=== PATIENT | female | born 2000 | race Caucasian/White ===

== ENCOUNTER 2022-05-09 19:42 | Emergency (ER) | payer BC, SELFPAY ==
[2022-05-09 19:54] VITALS: BP 147/79; PULSE 68; RESP 20; TEMP 36.5; O2SAT 99; BMI 36.5
[2022-05-09 20:07] LABS: Microscopic, Urine URINE MICROSCOPIC (MICROSCOPIC)
[2022-05-09 20:09] LABS: Basophils # 0.2 K/mm3 (0-0.2); Basophils % 1.4 % (0.1-2.0); Eosinophils # 0.3 K/mm3 (0.0-0.4); Eosinophils % 2.6 % (0.1-12.0); Hematocrit 42.1 % (37.0-47.0); Hemoglobin 13.6 g/dL (12.2-16.2); Lymphocytes # 2.7 K/mm3 (0.7-4.5); Lymphocytes % 24.4 % (10-50); Mean Corpuscular HGB Conc 32.3 g/dL (31.8-35.4); Mean Corpuscular Hemoglobin 27.8 pg (27.0-31.2); Mean Corpuscular Volume 85.9 fl (81-99); Mean Platelet Volume 7.8 fl (7.4-10.4); Monocytes # 0.5 K/mm3 (0.1-1.0); Neutrophils # 7.3 K/mm3 (1.8-7.8); Neutrophils % 66.6 % (37.0-80.0); Platelet Count 541 K/mm3 (142-424); Red Cell Distribution Width 13.8 % (11.5-17.5)
[2022-05-09 20:11] LABS: Appearance,Urine CLEAR (Clear); Blood, Urine Negative (Negative); Chloride 104 mmol/L (98-107); Color,Urine YELLOW (Yellow); Glucose,Urine (UA) Negative (Negative); Ketones,Urine Negative (Negative); Leukocyte Esterase,Urine Negative (Negative); Nitrate,Urine Negative (Negative); PH,Urine 7.5 (5.0-8.5); Potassium 3.7 mmoL/L (3.5-5.1); Protein,Urine Negative (Negative); Sodium 139 mmol/L (136-145); Specific Gravity, Urine 1.015 (1.005-1.030); Urobilinogen,Urine 0.2 EU/dl (0.2)
[2022-05-09 20:13] LABS: Alanine Aminotransferase 23 U/L (12-78); Aspartate Amino Transferase 27 U/L (14-36); Blood Urea Nitrogen 6 mg/dl (7-17); Creatinine Clearance Estimated 255 mL/min (50-200); Estimated Glomerular Filt Rate 126 ml/min (>60); GFR (African American) 153 ML/MIN (>60)
[2022-05-09 20:14] LABS: Albumin Level 4.4 g/dl (3.5-5.0); Albumin/Globulin Ratio 1.3 (1.1-1.8); Alkaline Phosphatase 74 U/L (38-126); Anion Gap 8.7 mEq/L (5-15); Bilirubin,Total 0.4 mg/dl (0.2-1.3); Calcium 8.7 mg/dl (8.4-10.2); Carbon Dioxide 30 mmol/L (22.0-30.0); Globulin 3.3 g/dL (1.3-3.2); Glucose 114 mg/dl (74-100); Total Protein,Serum 7.7 g/dl (6.3-8.2)
[2022-05-09 20:16] LABS: Urine Pregnancy, HCG Qual. Negative (Negative)
[2022-05-09 20:34] LABS: Bilirubin,Urine 1+ (Negative)
[2022-05-09 20:41] LABS: Bacteria,Urine Trace /lpf
--- NOTE | 2022-05-09 20:47 | HMH.EDNVD ---
Discharge Plan Disposition Chief Complaint: Nausea/Vomiting/Diarrhea Prescriptions Prescriptions: No Action No Known Home Medications Referrals Follow up/Referrals: Brandi Douglas [Primary Care Provider] - See instructions Clinical Impressions Clinical Impression: Gastroenteritis Instructions Patient Instructions: DI for Diarrhea and Traveler's Diarrhea -- Adult, DI for Nausea -- Adult Discharge ED Provider: Franky (ED)[place] Nausea/Vomiting/Diarrhea HPI General Chief complaint: Nausea/Vomiting/Diarrhea Stated complaint: vomiting,diarrhea, abd pain Time Seen by Provider: 05/09/22 20:05 Mode of Arrival: Ambulatory Source of Information: Patient and Medical Record Limitations: No Limitations Description of Symptoms (Recalled from ER Triage Doc. by RN): Pt states she has been having episodes of N/V/D over the past couple months with increased weakness and fatigue. 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 Pt states her abdominal pain is worse at night when she lays down. No other sysmptoms or complaints at this time. History of Present Illness HPI Narrative: pt with upper abd pain brien at night and has sl fever with vomiting and diarrhea - has sense of weakness and tired - MD complaint: nausea, vomiting, diarrhea and abdominal pain Onset (ago): day(s) Associated Abdominal Pain: Yes Location of pain: epigastric Severity: moderate Quality: aching Consistency: intermittent Associated symptoms: malaise Related Data Home Medications Medication Instructions Recorded Confirmed No Known Home Medications 07/05/17 07/05/17 Allergies Allergy/AdvReac Type Severity Reaction Status Date / Time No Known Allergies Allergy Verified 07/05/17 00:24 [facility] Disclaimer: The information contained in this section may have been updated after the patient was seen, as this information can be updated by other users. Social History Smoking Status: Light tobacco smoker alcohol intake: never current occupational status: employed Travel in the last 8 weeks: None ROS Obtained: Yes All systems reviewed & no additional complaints except as documented Physical Exam General General appearance: alert Head Head exam: normocephalic Eye Eye exam: Present PERRL and EOMI ENT ENT exam: Present mucous membranes moist Neck Neck exam: Present trachea midline Respiratory Respiratory exam: Present normal lung sounds bilaterally; Absent respiratory distress Cardiovascular Cardiovascular exam: Present regular rate Abdominal Exam Abdominal exam: Present soft and tenderness; Absent guarding or rebound Abdominal tenderness: Present epigastrium and mild Extremities Exam Extremities exam: Present full ROM Neurological Exam Neurological exam: Present alert, oriented X3 and CN II-XII intact; Absent motor sensory deficit Psychiatric Psychiatric exam: Present normal affect Skin Skin exam: Absent rash Medical Decision Making Medical Records Medical records reviewed: Yes I reviewed the patient's medical records. Joce Inquiry Pt receiving controlled substance: No Vital Signs: 05/09/22 19:54 05/09/22 22:05 Temperature 97.7 F Temperature Source Oral Pulse Rate 77 Pulse Rate [Right] 68 Respiratory Rate 20 20 Blood Pressure 114/59 L Blood Pressure [Right Arm] 147/79 H Blood Pressure Mean [Right Arm] 101 Blood Pressure Source Automatic Cuff Blood Pressure Source [Right Arm] Automatic Cuff Blood Pressure Position Sitting Blood Pressure Position [Right Arm] Sitting 02 Sat by Pulse Oximetry 99 100 Oxygen Delivery Method Room Air Room Air Lab Data Lab results reviewed: Yes I reviewed the patient's lab results. Lab Results 05/09/22 19:50: Urine Color Yellow, Urine Appearance Clear, Urine pH 7.5, Ur Specific [place] 1.015, Urine Protein Negative, Urine Glucose (UA) Negative, Urine Ketones Negative, Urine Blood Negative, Urine Nitrate Negative, Ur
[2022-05-09 21:09] LABS: C-Reactive Protein 10.4 mg/L (0-4)
[2022-05-09 21:23] LABS: T4 (Thyroxine) 9.6 ug/dl (5.53-11.0)
[2022-05-09 21:36] LABS: Thyroid Stimulating Hormone 1.09 uIU/mL (0.465-4.68)
[2022-05-09 22:05] VITALS: BP 114/59; PULSE 77; RESP 20; O2SAT 100
[2022-05-09 22:35] VITALS: BP 124/78; PULSE 71; RESP 20; TEMP 36.5; O2SAT 100
== END 2022-05-09 22:41 | disposition home or self-care (01) ==
PROVIDERS: Emergency Provider Emergency Medicine; PCP Family Medicine
DX: K52.9 Noninfective gastroenteritis and colitis, unspecified (principal); R11.2 Nausea with vomiting, unspecified; R10.10 Upper abdominal pain, unspecified; R53.83 Other fatigue
CPT/HCPCS: 80053; 81001; 81025; 84436; 84443; 85025; 86140; 96361; 96374; 99284; 99285; J2405

== ENCOUNTER 2023-06-29 15:48 | Emergency (ER) | payer BC, SELFPAY ==
--- NOTE | 2023-06-29 16:03 | EXP.UTC ---
Discharge Plan Disposition Patient Disposition: Home, Self-Care Condition: Good Prescriptions Prescriptions: New ibuprofen 600 mg tablet 600 mg PO Q6HP PRN (Reason: Mild Pain) Qty: 30 0RF Referrals Follow up/Referrals: Thomas Bunn [Primary Care Provider] - See instructions Roopa Gamble MD [Staff Physician] - See instructions Activity Restrictions/Add. Instructions Additional Instructions/Restrictions: Take the medications as directed for your headaches. Follow up with your regular doctor. I put in a referral to the neurologist (Dr. Gamble). Please call her office and get an appointment to be seen there. GO TO THE ER FOR ANY WORSENING SYMPTOMS Clinical Impressions Clinical Impression: Cluster headache Discharge ED Provider: Tenzin Kramer [facility] General Stated complaint: persistent WILEY Time Seen by Provider: 06/29/23 16:03 History of Present Illness Provider Complaint: She states that she has been having daily headache for the past 2 weeks. The headaches have been relieved with excedrin. Related Data Previous Rx's Medication Instructions Recorded ibuprofen 600 mg tablet 600 mg PO Q6HP PRN Mild Pain #30 06/29/23 tabs Allergies Allergy/AdvReac Type Severity Reaction Status Date / Time No Known Allergies Allergy Verified 06/29/23 16:47 [facility] Disclaimer: The information contained in this section may have been updated after the patient was seen, as this information can be updated by other users. Social History Smoking Status: Light tobacco smoker alcohol intake: never current occupational status: employed Travel in the last 8 weeks: None ROS Obtained: Yes All systems reviewed & no additional complaints except as documented Constitutional Constitutional: Denies chills, Denies fever(s), Reports headache(s) and Denies weakness Eyes Eyes: Denies eye discharge ENT Ears, Nose, Mouth, and Throat: Denies dizziness, Denies otalgia, Reports headache(s) and Denies sore throat Cardiovascular Cardiovascular: Denies chest pain Respiratory Respiratory: Denies shortness of breath, Denies chest congestion, Denies cough, Denies stridor and Denies wheezing Gastrointestinal Gastrointestingal: Denies nausea or vomiting Musculoskeletal Musculoskeletal: Reports system reviewed and no additional complaints, except as documented, Denies abnormal gait and Denies arthralgias Integumentary/Breasts Skin/Breast: Denies rash Neurologic Neurologic: Reports as per HPI, Denies abnormal gait, Denies abnormal speech, Denies confusion, Denies dizziness, Reports headache(s), Denies paresthesias, Denies radicular pain, Denies seizure-like activity, Denies sensory deficit, Denies tremor(s) and Denies weakness Allergic/Immunologic Allergic/Immunologic: Denies wheezing Physical Exam General General appearance: alert and in no apparent distress Head Head exam: atraumatic, normocephalic and normal inspection Eye Eye exam: Present normal appearance, PERRL and EOMI Expanded Eye Exam Pupils: Left: size (2), Right: size (2) and Bilateral: regular, round and reactive ENT ENT exam: Present normal exam, normal oropharynx, mucous membranes moist, TM's normal bilaterally and normal external ear exam Neck Neck exam: Present normal inspection, full ROM and trachea midline; Absent meningismus or lymphadenopathy Chest Chest inspection: Present normal inspection and symmetric chest wall rise; Absent tenderness Respiratory Respiratory exam: Present normal lung sounds bilaterally; Absent respiratory distress Cardiovascular Cardiovascular exam: Present regular rate and normal rhythm; Absent JVD Abdominal Exam Abdominal exam: Present soft and normal bowel sounds; Absent distention, tenderness or guarding Extremities Exam Extremities exam: Present normal inspection, full ROM and normal capillary refill; Absent calf tenderness Back Exam Back exam: Present normal inspection; Absent tenderness Neurological Exam Neurological exam: Present alert, oriented X3, CN II-XII intact, normal gait and reflexes normal; Absent motor sensory deficit Expanded Neurological Exam Speech: Present fluid speech Cranial nerves: Normal: EOM function (II, III, IV, ), facial sensation (V), facial palsy (VII), gag reflex (IX), spinal accessory function (XI) and tongue deviation (XII) Cerebellar function: normal gait Motor strength - LUE: 5/5 Motor strength - RUE: 5/5 Motor strength - LLE: 5/5 Motor strength - RLE: 5/5 Sensory exam upper extremity: Normal: light touch and 2 point discrimination Sensory exam lower extremity: Normal: light touch and 2 point discrimination DTR: 2+: biceps (L), biceps (R), patellar (L), patellar (R), Achilles tendon (L) and Achilles tendon (R) Psychiatric Psychiatric exam: Present normal affect and normal mood Skin Skin exam: Present warm, dry, intact and normal color Lymphatic Lymphatic Findings: no adenopathy Medical Decision Making Medical Records Medical records reviewed: No I reviewed the patient's medical records. Joce Inquiry Pt receiving controlled substance: No
[2023-06-29 16:10] VITALS: BP 134/41; PULSE 91; RESP 18; TEMP 36.9; O2SAT 96; BMI 38.7
[2023-06-29 17:03] VITALS: BP 134/41; PULSE 91; RESP 18; TEMP 36.9; O2SAT 96
== END 2023-06-29 17:03 | disposition home or self-care (01) ==
PROVIDERS: Emergency Provider Nurse Practitioner Family; PCP Pediatrics
DX: G44.009 Cluster headache syndrome, unspecified, not intractable (principal)
CPT/HCPCS: 99204; 99212; G0463

== ENCOUNTER 2023-08-03 17:08 | Emergency (ER) | payer BC, SELFPAY ==
[2023-08-03] VITALS (7 sets, daily range): BP systolic 109–136; BP diastolic 57–83; PULSE 94–114; RESP 13–16; TEMP 36.7–36.8; O2SAT 95–98; BMI 42.0
--- NOTE | 2023-08-03 17:49 | HMH.EDGENADL ---
Discharge Plan Disposition Patient Disposition: Home, Self-Care Condition: Good Prescriptions Prescriptions: New ondansetron 4 mg tablet,disintegrating 4 mg PO Q6H PRN (Reason: nausea and vomiting) 4 Days Qty: 16 0RF famotidine [Pepcid AC] 20 mg tablet 20 mg PO BID 14 Days Qty: 28 0RF No Action ibuprofen 600 mg tablet 600 mg PO Q6HP PRN (Reason: Mild Pain) Qty: 30 0RF Referrals Follow up/Referrals: Thomas Bunn [Primary Care Provider] - See instructions Activity Restrictions/Add. Instructions Additional Instructions/Restrictions: You have been evaluated in the ED for your complaints. You may follow-up with your PCP in the next 3 to 5 days. Please return to ED for any new or worsening symptoms. I have written prescriptions for Zofran to assist with your nausea. Pepcid should assist with your epigastric symptoms. Please drink plenty of fluids over the next several days. Clinical Impressions Clinical Impression: Nausea vomiting and diarrhea, Gastroenteritis Instructions Patient Instructions: DI for Acute Abdominal Pain Discharge ED Provider: Isaias Varghese General Adult HPI General Chief complaint: Abdominal Pain Stated complaint: abd pain, vomiting Time Seen by Provider: 08/03/23 17:14 Mode of Arrival: Ambulatory Source of Information: Patient Limitations: No Limitations Description of Symptoms (Recalled from ER Triage Doc. by RN): pt presents to ED with c/o vomitting, diarrhea, abd pain. symptoms ongoing since saturday. History of Present Illness HPI narrative: 22-year-old female with past medical history sniffing for ulcerative colitis presents today for evaluation concerning nausea vomiting and diarrhea persistent over the past 4 days. She has also had epigastric abdominal pain. Reports fever with Tmax of 101.2 on yesterday. Has been afebrile today. Decreased p.o. intake. Denies having any chest pain, shortness of breath, dysuria, hematuria or any other associated symptoms at this time. She does report that no one else in the home has her symptoms. Related Data Previous Rx's Medication Instructions Recorded ibuprofen 600 mg tablet 600 mg PO Q6HP PRN Mild Pain #30 06/29/23 tabs famotidine 20 mg tablet (Pepcid AC) 20 mg PO BID 2 weeks #28 tabs 08/03/23 ondansetron 4 mg disintegrating 4 mg PO Q6H PRN nausea and 06/22/24 tablet vomiting 4 days #16 tabs Allergies Allergy/AdvReac Type Severity Reaction Status Date / Time No Known Allergies Allergy Verified 06/29/23 16:47 [facility] Disclaimer: The information contained in this section may have been updated after the patient was seen, as this information can be updated by other users. Social History Smoking Status: Never smoker alcohol intake: never current occupational status: employed Travel in the last 8 weeks: None ROS Obtained: Yes All systems reviewed & no additional complaints except as documented Physical Exam General General appearance: alert and in no apparent distress Head Head exam: atraumatic and normocephalic Eye Eye exam: Present normal appearance, PERRL and EOMI ENT ENT exam: Present normal oropharynx and mucous membranes moist Neck Neck exam: Present full ROM; Absent meningismus Respiratory Respiratory exam: Absent respiratory distress, wheezes, stridor or accessory muscle use Cardiovascular Cardiovascular exam: Present normal rhythm and tachycardia Abdominal Exam Abdominal exam: Present soft and tenderness; Absent distention, guarding, rebound or rigidity Abdominal tenderness: Present RUQ, LUQ and epigastrium Neurological Exam Neurological exam: Present alert, oriented X3 and CN II-XII intact; Absent motor sensory deficit Psychiatric Psychiatric exam: Present normal affect and normal mood Skin Skin exam: Present warm and dry Medical Decision Making Medical Records Medical records reviewed: Yes I reviewed the patient's medical records. Joce Inquiry Pt receiving controlled substance: No Joce was queried for this patient: No Vital Signs: 08/03/23 17:10 08/03/23 18:00 08/03/23 18:12 Temperature 98.1 F Temperature Source Oral Pulse Rate 108 H 110 H Pulse Rate [Left Radial] 114 H Respiratory Rate 13 Blood Pressure 128/80 130/83 Blood Pressure [Right Arm] 136/74 Blood Pressure Mean [Right Arm] 94 02 Sat by Pulse Oximetry 98 97 97 Oxygen Delivery Method Room Air 08/03/23 18:30 08/03/23 18:59 08/03/23 19:00 Temperature Temperature Source Pulse Rate 108 H 94 H 94 H Pulse Rate [Left Radial] Respiratory Rate Blood Pressure 111/83 117/57 L 109/67 L Blood Pressure [Right Arm] Blood Pressure Mean [Right Arm] 02 Sat by Pulse Oximetry 97 96 95 Oxygen Delivery Method Lab Data Lab Results 08/03/23 17:25: Urine Color Dark yellow, Urine Appearance Slightly cloudy, Urine pH 6.0, Ur Specific [place] 1.025, Urine Protein Negative, Urine Glucose (UA) Negative, Urine Ketones 1+, Urine Blood Trace-l, Urine Nitrate Negative, Urine Bilirubin 1+ A, Urine Urobilinogen 2.0, Ur Leukocyte Esterase Trace, Urine RBC 3-5, Urine WBC 3-5, Ur Squamous Epith Cells Occasional, Urine Bacteria 1+ 08/03/23 17:38: WBC 7.5, RBC 4.75, Hgb 13.5, Hct 41.3, MCV 87.1, MCH 28.4, MCHC 32.6, RDW 14.3, Plt Count 492 H, MPV 8.4, Neut % (Auto) 64.4, Lymph % (Auto) 20.0, [place] % (Auto) 7.6, Eos % (Auto) 6.6, Baso % (Auto) 1.4, Neut # (Auto) 4.8, Lymph # (Auto) 1.5, [place] # (Auto) 0.6, Eos # (Auto) 0.5 H, Baso # (Auto) 0.1, Sodium 137, Potassium 3.2 L, Chloride 103, Carbon Dioxide 26, Anion Gap 11.2, BUN 7, Creatinine 0.70, Estimated Creat Clear 123, Estimated GFR 105, Est GFR ( Amer) 127, Glucose 101 H, Lactate 0.8, Calcium 9.5, Total Bilirubin 0.5, AST 34, ALT 31, Alkaline Phosphatase 64, Total Protein 8.0, Albumin 4.5, Globulin 3.5 H, Albumin/Globulin Ratio 1.3, Lipase 26, Serum HCG, Qual Negative 08/03/23 17:38 08/03/23 17:38 Orders (Tests/Meds): ED MEDICATIONS Discontinued Medications Generic Name Dose Route Start Last Admin Trade Name Freq PRN Reason Stop Dose Admin Belladonna Alkaloids 60 ml 08/03/23 17:49 08/03/23 18:09 Belladonna Alkaloids 60 Ml Ml PO 08/03/23 17:50 60 ml ONCE ONE Administration Lactated Ringer's 500 mls @ 999 mls/hr 08/03/23 17:49 08/03/23 18:15 Lactated Ringer's 1000 Ml Bag IV 08/03/23 18:19 999 mls/hr .Q31M ONE Administration Iopamidol 75 ml 08/03/23 19:58 08/03/23 19:59 Iopamidol-370 (76%);100ml Bottle IV 08/03/23 19:59 75 ml ONCE ONE Administration Morphine Sulfate 4 mg 08/03/23 17:49 08/03/23 18:15 Morphine 4mg/Ml Syringe IV 08/03/23 17:50 4 mg ONCE ONE Administration Ondansetron HCl 4 mg 08/03/23 17:49 08/03/23 18:15 Ondansetron 4mg/2ml Vial IV 08/03/23 17:50 4 mg ONCE ONE Administration Sodium Chloride 10 ml 08/03/23 19:58 08/03/23 19:59 Sodium Chloride 0.9% 10ml Syr (Rad Only) IV 08/03/23 19:59 10 ml ONCE ONE Administration ORDERS Category Date Time Status CT abdomen pelvis w con Stat Cat Scan 08/03/23 17:51 Completed CBC w/Auto Diff [Complete Blood Count Auto Diff] Stat Lab 08/03/23 17:38 Completed CMP [Comprehensive Metabolic Panel] Stat Lab 08/03/23 17:38 Completed Lactic Acid Stat Lab 08/03/23 17:38 Completed Lipase Stat Lab 08/03/23 17:38 Completed Serum [HCG Qualitative, Serum] Stat Lab 08/03/23 17:38 Completed UA [Urinalysis and Microscopic] Stat Lab 08/03/23 17:25 Completed Medical Decision Narrative: 22-year-old female with past medical history sniffing for ulcerative colitis presents today for evaluation concerning nausea vomiting and diarrhea persistent over the past 4 days. She has also had epigastric abdominal pain. Reports fever with Tmax of 101.2 on yesterday. Has been afebrile today. Decreased p.o. intake. Denies having any chest pain, shortness of breath, dysuria, hematuria or any other associated symptoms at this time. On assessment she is medically stable in no acute distress. Afebrile. Tachycardic. Chest otherwise clear to auscultation bilaterally. Abdomen was soft and nondistended however was tender in the upper quadrants. Focally tender in the epigastrium. Differential diagnoses include but limited to gastritis, gastroenteritis, cholecystitis, cholelithiasis, pancreatitis, ulcerative colitis flare, among others. No elevation in WBC at 7.5. Platelets elevated at 492, likely reactive. Potassium 3.2. No signs of UTI on urinalysis. CT abdomen pelvis with no acute findings. On reassessment the patient remains medically stable and in no acute distress. Afebrile. Pain is much improved after GI cocktail. I discussed ED workup and results and current plan to discharge home with supportive care measures in the Setting of her gastroenteritis. Will prescribe Zofran and Pepcid. She verbalized understanding and agreement with plan. Provided with return precautions. Subsequently discharged hemodynamically stable and in no acute distress Critical Care Critical Care Time Critical Care Time: No
--- NOTE | 2023-08-03 17:51 | CT_ITS ---
PROCEDURE INFORMATION: Exam: CT Abdomen And Pelvis With Contrast Exam date and time: 08/03/2023 7:45 PM Age: 22 years old Clinical indication: Abdominal pain; Additional info: Upper abd pain/ n/v TECHNIQUE: Imaging protocol: Computed tomography of the abdomen and pelvis with contrast. Radiation optimization: All CT scans at this facility use at least one of these dose optimization techniques: automated exposure control; mA and/or kV adjustment per patient size (includes targeted exams where dose is matched to clinical indication); or iterative reconstruction. Contrast material: ISOVUE; Contrast volume: 75 ml; Contrast route: IV; COMPARISON: No relevant prior studies available. FINDINGS: Liver: Normal. No mass. Gallbladder and biliary ducts: Normal. No calcified stones. No ductal dilation. Pancreas: Normal. No ductal dilation. Spleen: Normal. No splenomegaly. Adrenal glands: Normal. No mass. Kidneys and ureters: Normal. No hydronephrosis. Stomach and bowel: Unremarkable. No obstruction. No mucosal thickening. Appendix: No evidence of appendicitis. Intraperitoneal space: Unremarkable. No free air. No significant fluid collection. Vasculature: Unremarkable. No abdominal aortic aneurysm. Lymph nodes: Unremarkable. No enlarged lymph nodes. Urinary bladder: Unremarkable as visualized. Reproductive: 2.2 cm right ovarian follicle versus cyst. Bones/joints: Unremarkable. No acute fracture. Soft tissues: Small to moderate size midline upper ventral abdominal wall fat containing hernia superior to the umbilicus. IMPRESSION: No acute findings.
[2023-08-03 17:55] LABS: Microscopic, Urine URINE MICROSCOPIC (MICROSCOPIC)
[2023-08-03 17:58] LABS: Basophils # 0.1 K/mm3 (0-0.2); Basophils % 1.4 % (0.1-2.0); Eosinophils # 0.5 K/mm3 (0.0-0.4); Eosinophils % 6.6 % (0.1-12.0); Hematocrit 41.3 % (37.0-47.0); Hemoglobin 13.5 g/dL (12.2-16.2); Lymphocytes # 1.5 K/mm3 (0.7-4.5); Mean Corpuscular HGB Conc 32.6 g/dL (31.8-35.4); Mean Corpuscular Hemoglobin 28.4 pg (27.0-31.2); Mean Corpuscular Volume 87.1 fl (81-99); Mean Platelet Volume 8.4 fl (7.4-10.4); Monocytes # 0.6 K/mm3 (0.1-1.0); Monocytes % 7.6 % (1.7-9.3); Neutrophils # 4.8 K/mm3 (1.8-7.8); Neutrophils % 64.4 % (37.0-80.0); Platelet Count 492 K/mm3 (142-424); Red Blood Count 4.75 M/mm3 (4.20-5.40); Red Cell Distribution Width 14.3 % (11.5-17.5); White Blood Count 7.5 K/mm3 (4.8-10.8)
[2023-08-03 17:58] LABS: Blood, Urine TRACE-L (Negative); Glucose,Urine (UA) Negative (Negative); Ketones,Urine 1+ (Negative); Leukocyte Esterase,Urine TRACE (Negative); Nitrate,Urine Negative (Negative); Protein,Urine Negative (Negative); Specific Gravity, Urine 1.025 (1.005-1.030)
[2023-08-03 17:59] LABS: Chloride 103 mmol/L (98-107); Potassium 3.2 mmoL/L (3.5-5.1); Sodium 137 mmol/L (136-145)
[2023-08-03 18:00] LABS: Appearance,Urine Slightly Cloudy (Clear); Bilirubin,Urine 1+ (Negative); Color,Urine Dark Yellow (Yellow)
[2023-08-03 18:01] LABS: Blood Urea Nitrogen 7 mg/dl (7-17); Creatinine Clearance Estimated 123 mL/min (50-200); Estimated Glomerular Filt Rate 105 ml/min (>60); GFR (African American) 127 ML/MIN (>60); Lactic Acid 0.8 mmol/L (0.7-2.1)
[2023-08-03 18:02] LABS: Alanine Aminotransferase 31 U/L (12-78); Albumin Level 4.5 g/dl (3.5-5.0); Albumin/Globulin Ratio 1.3 (1.1-1.8); Alkaline Phosphatase 64 U/L (38-126); Anion Gap 11.2 mEq/L (5-15); Aspartate Amino Transferase 34 U/L (14-36); Bilirubin,Total 0.5 mg/dl (0.2-1.3); Calcium 9.5 mg/dl (8.4-10.2); Carbon Dioxide 26 mmol/L (22.0-30.0); Globulin 3.5 g/dL (1.3-3.2); Glucose 101 mg/dl (74-100); Lipase 26 U/L (23-300)
[2023-08-03 18:09] LABS: Bacteria,Urine 1+ /lpf; Squamous Epithelial Cell,Urine Occasional #/hpf (0-5)
[2023-08-03] MEDS: BELLADONNA ALKALOIDS 60 ML ML PO (18:09)
[2023-08-03 18:10] LABS: HCG Qualitative, Serum Negative (Negative)
[2023-08-03] MEDS: ONDANSETRON 4MG/2ML VIAL 4 MG IV (18:15)
[2023-08-03] MEDS: LACTATED RINGERS 1000ML 500 ML 999 ML IV (18:15)
[2023-08-03] MEDS: MORPHINE 4MG/ML SYRINGE 4 MG IV (18:15)
[2023-08-03] MEDS: IOPAMIDOL-370 (76%);100ML BOTTLE 75 ML IV (19:59)
[2023-08-03] MEDS: SODIUM CHLORIDE 0.9% 10ML SYR (RAD ONLY) 10 ML IV (19:59)
== END 2023-08-03 23:08 | disposition home or self-care (01) ==
PROVIDERS: Emergency Provider Emergency Medicine; PCP Pediatrics
DX: R10.13 Epigastric pain (principal); K52.9 Noninfective gastroenteritis and colitis, unspecified; R11.2 Nausea with vomiting, unspecified; E87.6 Hypokalemia
CPT/HCPCS: 74177; 80053; 81001; 83605; 83690; 84703; 85025; 96374; 96375; 99285; J2270; J2405; J7120; Q9967

== ENCOUNTER 2024-01-13 23:31 | Emergency (ER) | payer BC, SELFPAY ==
[2024-01-13 23:33] VITALS: BP 130/85; PULSE 100; RESP 20; TEMP 36.9; O2SAT 97; BMI 40.4
--- NOTE | 2024-01-14 00:22 | ED_ITS ---
Discharge Plan Disposition Patient Disposition: Home, Self-Care Condition: Good Prescriptions Prescriptions: No Action ondansetron 4 mg tablet,disintegrating 4 mg PO Q6H PRN (Reason: nausea and vomiting) 4 Days Qty: 16 0RF Referrals Follow up/Referrals: Thomas Bunn [Primary Care Provider] - See instructions Activity Restrictions/Add. Instructions Additional Instructions/Restrictions: You were evaluated in the ER and are appropriate for discharge at this time. Take Tylenol or ibuprofen if needed for mild Aches and pains. Drink a glass of water and eat a small snack each time you take these medications to avoid side effects. Follow-up with your primary care doctor for reevaluation in a few days. Return to the ER with new, worsening, or otherwise concerning symptoms. Clinical Impressions Clinical Impression: Acute sore throat Print Language Print Language: Sinhala Discharge ED Provider: Chika Enriquez Adult HPI General Chief complaint: Upper Respiratory Infection Stated complaint: tongue, throat swelling, redness Time Seen by Provider: 01/14/24 00:08 Mode of Arrival: Ambulatory Source of Information: Patient Limitations: No Limitations Description of Symptoms (Recalled from ER Triage Doc. by RN): Pt to ED with c/o sore throat X2 days, and report she feels like her tongue has been swollen as well History of Present Illness HPI narrative: 23-year-old female presents to the ER with complaints of sore throat for the past few days. She reports she feels like the sides of her tongue have been swollen since her throat started hurting, she has a crack in her lip as well. Patient states her daughter was treated for strep a few weeks ago so she really is hoping to be tested for strep to make sure she does not have that. She states she has had mild congestion but no fevers, no nausea vomiting or diarrhea, no chest pain or shortness of breath, no cough, headache, dizziness, numbness, tingling, weakness, dysuria, or hematuria. Patient reports she does not believe she is but is unsure. Related Data Previous Rx's ?Medication ?Instructions ?Recorded ondansetron 4 mg disintegrating 4 mg PO Q6H PRN nausea and 08/03/23 tablet vomiting 4 days #16 tabs Allergies Allergy/AdvReac Type Severity Reaction Status Date / Time No Known Allergies Allergy Verified 08/27/23 14:42 [facility] Disclaimer: The information contained in this section may have been updated after the patient was seen, as this information can be updated by other users. Medical History (Updated 01/14/24 @ 01:17 by Chika Enriquez MD) No significant medical problems Surgical History (Updated 08/27/23 @ 14:45 by Edda Sosa MA) Hx of section Hx of adenoidectomy Social History Smoking Status: Current every day smoker alcohol intake: never current occupational status: employed Travel in the last 8 weeks: None ROS Obtained: Yes Systems reviewed as appropriate & no additional complaints except as documented ROS per HPI Physical Exam General General appearance: alert and in no apparent distress Head Head exam: atraumatic and normocephalic Eye Eye exam: Present PERRL and EOMI ENT ENT exam: Present mucous membranes moist and other (Tongue normal in appearance with no swelling, there is no finding of mucosal swelling aside from the tonsillomegaly; patient has a well-healing crack in her lower lip, she states occasionally when she smiles it cracks and bleeds. There are no vesicles or other associated skin or mucosal changes); Absent normal oropharynx (Tonsils are enlarged but airway is patent, there are no obvious exudates) Neck Neck exam: Present normal inspection and full ROM; Absent lymphadenopathy Chest Chest inspection: Present symmetric chest wall rise Respiratory Respiratory exam: Present normal lung sounds bilaterally; Absent respiratory distress, wheezes or stridor Cardiovascular Cardiovascular exam: Present regular rate and normal rhythm Extremities Exam Extremities exam: Present full ROM Neurological Exam Neurological exam: Present alert and oriented X3; Absent motor sensory deficit Psychiatric Psychiatric exam: Present normal affect and normal mood Skin Skin exam: Present warm and dry Medical Decision Making Medical Records Medical records reviewed: Yes I reviewed the patient's medical records. Screening: Per USPSTF and CDC recommendations, given the prevalence of disease in our region, it is our hospital?s policy to screen for HIV and viral Hepatitis for all patients aged 18 and over and those with ongoing risk factors. 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 Nexplanon was removed. Joce Inquiry Pt receiving controlled substance: No Vital Signs: 01/13/24 23:33 Temperature 98.5 F Temperature Source Oral Pulse Rate [Left Radial] 100 H Respiratory Rate 20 Blood Pressure [Right Arm] 130/85 Blood Pressure Mean [Right Arm] 100 Blood Pressure Source [Right Arm] Automatic Cuff Blood Pressure Position [Right Arm] Sitting 02 Sat by Pulse Oximetry 97 Oxygen Delivery Method Room Air Lab Data Lab Results 01/14/24 00:25: Urine HCG, Qual Negative, SARS-CoV-2 (PCR) Not detected, Influenza A Untype (PCR) Not detected, Influenza Type B (PCR) Not detected, Group A Strep Rapid Negative Orders (Tests/Meds): ORDERS Category Date Time Status Rapid PCR Covid and Flu A/B Stat Lab 01/14/24 00:25 Completed Strep Scrn Group A (Rapid) Stat Lab 01/14/24 00:25 Completed Urine , HCG Qual. Stat Lab 01/14/24 00:25 Completed Strep Screen Confirmation Stat Micro 01/14/24 00:25 Received Medical Decision Narrative: In summary, this 23-year-old female with no known chronic medical conditions, no daily medications, no known drug allergies presents to the emergency department today with sore throat, sensation that the edges of her tongue are swollen, and her lip is cracked. On initial evaluation patient is hemodynamically stable, afebrile, I do not appreciate lymphadenopathy however patient's tonsils are enlarged and mildly erythematous without exudate, cardiopulmonary exam benign, tongue is normal-appearing I do not appreciate any swelling, no findings of angioedema, no findings of intraoral lesions, lip appears to just be a simple superficial crack, there are no vesicles or other lesions appreciated though I did consider herpes simplex on my differential. In addition to the things mentioned, I considered the possibility of strep since patient was exposed to this from her daughter recently. Also consider the possibility of viral syndrome, with any sore throat ROS consider peritonsillar abscess or retroph aryngeal abscess however patient has no evidence of these since all posterior oropharyngeal structures are symmetric, there is no pain with range of motion of the neck, no voice changes, and no fever COVID test, strep swab, urine ordered. Review of labs demonstrates negative COVID and flu, no strep, test negative. On reassessment patient continues to be stable and is appropriate for discharge at this time. Patient was given instructions on symptomatic management, follow up instructions, and return precautions for the emergency department. Patient indicated understanding and was discharged in stable condition. Critical Care Critical Care Time Critical Care Time: No
[2024-01-14 00:32] LABS: Coronavirus 19, PCR Not Detected (NotDetected); Influenza A, PCR Not Detected (NotDetected); Influenza B, PCR Not Detected (NotDetected)
[2024-01-14 00:42] LABS: Urine Pregnancy, HCG Qual. Negative (Negative)
[2024-01-14 00:45] LABS: Strep Scrn Group A (Rapid) Negative (Negative)
[2024-01-14 01:26] VITALS: BP 130/89; PULSE 100; RESP 20; TEMP 36.9; O2SAT 97
== END 2024-01-14 01:27 | disposition home or self-care (01) ==
PROVIDERS: Emergency Provider Emergency Medicine; PCP Pediatrics
DX: J02.9 Acute pharyngitis, unspecified (principal); R09.81 Nasal congestion; Z72.0 Tobacco use
CPT/HCPCS: 81025; 87430; 87636; 99283

== ENCOUNTER 2024-03-08 16:48 | Emergency (ER) | payer BC, SELFPAY ==
[2024-03-08 17:06] VITALS: BP 133/57; PULSE 91; RESP 18; TEMP 36.7; O2SAT 97; BMI 41.3
--- NOTE | 2024-03-08 17:21 | EXP.UTC ---
Discharge Plan Disposition Patient Disposition: Home, Self-Care Condition: Good Prescriptions Prescriptions: New cefdinir 300 mg capsule 300 mg PO Q12H 10 Days Qty: 20 0RF fluticasone propionate [Flonase Allergy Relief] 50 mcg/actuation spray,suspension 1 spray intranasal DAILY Qty: 16 0RF Rx Instructions: administer into each nostril Referrals Follow up/Referrals: Provider,Referral, MD [Primary Care Provider] - See instructions Activity Restrictions/Add. Instructions Additional Instructions/Restrictions: Take medication as prescribed. Increase fluids and rest. If symptoms persist or worsen, return to clinic/PCP. Clinical Impressions Clinical Impression: Acute suppur left otitis media w/o spontan rupture tympanic membrane Instructions Patient Instructions: DI for Middle Ear Infection-Adult Print Language Print Language: Cuban Discharge ED Provider: Kirstin Bhakta [facility] HPI General Stated complaint: L side face swollen w/knot/ear pain Mode of Arrival: Ambulatory Source of Information: Patient Time Seen by Provider: 03/08/24 17:20 Description of Symptoms (Recalled from Triage Doc. by RN): LEFT SIDE OF JAW SWELLED, EAR PAIN, LUMP ON JAW HEENT Symptoms (Recalled from RN notes): Yes Resp Symptoms (Recalled from RN notes): No Skin Symptoms (Recalled from RN notes): Yes MS Symptoms (Recalled from RN notes): No Functional Status (Recalled from RN notes): WNL History of Present Illness Provider Complaint: Pt relates that her left ear started hurting yesterday with a pain 10/10. She reports that it is not as bad as it was, but she has taken Ibuprofen. Pt relates that she has a lump just under her jaw and what feels like left side facial swelling. Related Data Previous Rx's ?Medication ?Instructions ?Recorded cefdinir 300 mg capsule 300 mg PO Q12H 10 days #20 caps 03/08/24 fluticasone propionate 50 1 spray intranasal DAILY #16 grams 03/08/24 mcg/actuation nasal spray,suspension (Flonase Allergy Relief) Allergies Allergy/AdvReac Type Severity Reaction Status Date / Time No Known Allergies Allergy Verified 08/27/23 14:42 Worker's Comp Is this a Worker's Comp case?: No [facility] Disclaimer: The information contained in this section may have been updated after the patient was seen, as this information can be updated by other users. Medical History (Updated 03/08/24 @ 17:33 by Kirstin Bhakta APRN) No significant medical problems Surgical History (Updated 08/27/23 @ 14:45 by Edda Sosa MA) Hx of section Hx of adenoidectomy Social History Smoking Status: Current every day smoker alcohol intake: never current occupational status: employed Travel in the last 8 weeks: None Have you lived/traveled outside US in past 30 days?: No Contact w/someone who lives/traveled outside US past 30 days?: No Exposure to someone with infectious disease in past 14 days?: No Do you have a fever (greater than 100.4 F or 38 C)?: No Have you tested positive for COVID-19: No Exposed to someone with COVID-19 in past 14 days?: No Do you have a sore throat?: No Do you have a cough?: No Do you have any weakness?: No Do you have any diarrhea?: No Are you experiencing any unusual bleeding?: No Do you have any muscle aches/pain?: No Do you have any abdominal pain?: No Are you experiencing loss of taste or smell?: No ROS Obtained: Yes All systems reviewed & no additional complaints except as documented Constitutional Constitutional: Reports system reviewed and no additional complaints, except as documented Eyes Eyes: Reports system reviewed and no additional complaints, except as documented ENT Ears, Nose, Mouth, and Throat: Reports system reviewed and no additional complaints, except as documented, Reports otalgia, Reports facial pain and Reports sinus pressure Cardiovascular Cardiovascular: Reports system reviewed and no additional complaints, except as documented Respiratory Respiratory: Reports system reviewed and no additional complaints, except as documented Gastrointestinal Gastrointestingal: Reports system reviewed and no additional complaints, except as documented Genitourinary Female Genitourinary: Reports system reviewed and no additional complaints, except as documented Musculoskeletal Musculoskeletal: Reports system reviewed and no additional complaints, except as documented Integumentary/Breasts Skin/Breast: Reports system reviewed and no additional complaints, except as documented Neurologic Neurologic: Reports system reviewed and no additional complaints, except as documented Endocrine Endocrine: Reports system reviewed and no additional complaints, except as documented Hematologic/Lymphatic Henatologic/Lymphatic: Reports system reviewed and no additional complaints, except as documented Allergic/Immunologic Allergic/Immunologic: Reports system reviewed and no additional complaints, except as documented Physical Exam General General appearance: alert and in no apparent distress Head Head exam: atraumatic and normocephalic Eye Eye exam: Present normal appearance ENT ENT exam: Present mucous membranes moist Expanded ENT Exam External ear exam: Present normal external inspection TM/Canal exam: Left TM: erythema, bulging and effusion Nose exam: Present sinus tenderness (maxillary (left)) Nasal speculum exam: Bilateral: normal Mouth exam: Present normal external inspection Teeth exam: Present normal inspection Throat exam: Present normal inspection Neck Neck exam: Present lymphadenopathy (left submandibular) Chest Chest inspection: Present normal inspection and symmetric chest wall rise Respiratory Respiratory exam: Present normal lung sounds bilaterally Cardiovascular Cardiovascular exam: Present regular rate, normal rhythm and normal heart sounds Abdominal Exam Abdominal exam: Present soft and normal bowel sounds Extremities Exam Extremities exam: Present normal inspection Back Exam Back exam: Present normal inspection Neurological Exam Neurological exam: Present alert and oriented X3 Psychiatric Psychiatric exam: Present normal affect and normal mood Skin Skin exam: Present warm, dry and intact Lymphatic Lymphatic Findings: no adenopathy Medical Decision Making Medical Records Screening: Per USPSTF and CDC recommendations, given the prevalence of disease in our region, it is our hospital?s policy to screen for HIV and viral Hepatitis for all patients aged 18 and over and those with ongoing risk factors. Joce Inquiry Pt receiving controlled substance: No Joce was queried for this patient: No Vital Signs: 03/08/24 17:06 Temperature 98.1 F Temperature Source Oral Pulse Rate [Left Radial] 91 H Respiratory Rate 18 Blood Pressure [Left Arm] 133/57 L Blood Pressure Mean [Left Arm] 82 02 Sat by Pulse Oximetry 97
[2024-03-08 17:33] VITALS: BP 133/57; PULSE 91; RESP 18; TEMP 36.7
== END 2024-03-08 17:35 | disposition home or self-care (01) ==
PROVIDERS: Emergency Provider Nurse Practitioner Family
DX: H66.002 Acute suppurative otitis media without spontaneous rupture of ear drum, left ear (principal)
CPT/HCPCS: 99212; G0381

== ENCOUNTER 2024-11-11 09:12 | Emergency (ER) | payer BC, SELFPAY ==
[2024-11-11 09:22] VITALS: BP 134/49; PULSE 105; RESP 15; TEMP 37; O2SAT 96; BMI 43.9
--- OUTSIDE RECORDS SUMMARY | 2024-11-11 09:24 | XMS_ITS | Encounter Summary ---
Author Organization [facility] Address [address] [place] [address] Care Team Providers Care Clinic Director Name Role Phone Thomas Bunn MD Primary Care Provider [phone] Encounter Details Date Type Department Care Team (Late st Contact Info) Description 04/06/2020 E-Visit [facility] OBGYN [address] [place] [address] Becca oGnsales MD [address] [facility] [address] [place] [address] Urinary Problems Social History Tobacco Use Types Packs/Day Years Used Date Smoking Tobacco: Former Smokeless Tobacco: Former Comments:quit with +UPT Alcohol Use Standard Drinks/Week Comments Never 0 (1 standard drink = 0.6 oz pur e alcohol) AUDIT-C Answer Date Recorded Q1: How often do you have a drink containing alc ohol? Never 11/05/2019 Average Number of Drinks Not on file 020 Frequency of Binge Drinking Not on file 10/13 Overall Financial Resource Strain (CARDIA) Answe r Date Recorded How hard is it for you to pa y for the very basics like food, housing, medical care, and heating? Not hard at all 11/18/2019 [facility] [place] of Occupat ional Health - Occupational Stress Questionnaire Answer Date Recorded Do you feel stress - tense, restless, nervous, or anxious, or unable to sleep at night because your mind is troubled all the time - these days? Not at all 11/18/2019 Exercise Vital Sign Answer Date Recorde d On average, how many days pe r week do you engage in moderate to strenuous exercise (like a brisk walk)? 0 days 11/18/2019 On average, how many minutes do you engage in exercise at this level? 0 min 11/18/2019 Hunger Vital Sign Answer Date Recorded Within the past 12 months, y ou worried that your food would run out before you got the money to buy more. Never true 11/18/19 20 Within the past 12 months, t he food you bought just didn't last and you didn't have money to get more. Never true 11/18/2019 PRAPARE - Transportation Answer Date Re corded In the past 12 months, has l ack of transportation kept you from medical appointments or from getting medications? No 08/2019 In the past 12 months, has l ack of transportation kept you from meetings, work, or from getting things needed for daily living? No 11/18/2019 Comments Yes Sex and Gender Information Value Date Recorded Sex Assigned at Not on file Legal Sex Female 1:00 PM EDT Gender Identity Not on file Sexual Orientation Not on file documented as of this encounter Plan of Treatment Not on file documented as of this encounter Visit Diagnoses Not on filedocumented in this encounter Additional Health Concerns Infection Onset Date Last Indicated Resolved Time COVID Screen (preop/placement) 06/12/2020 06/12/2020 06/13/2020 1:03 PM EDT documented as of this encounter Care Teams Clinic Director Relationship Specialty Start Date End Date Thomas Bunn MD [address] [place] [address] PCP - General Internal Medicine 08/19/23 documented as of this encounter
--- OUTSIDE RECORDS SUMMARY | 2024-11-11 09:24 | XMS_ITS | Clinical Summary ---
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 Phone Thomas Bunn MD Primary Care Provider [phone] Allergies No known active allergies Medications No known medications Active Problems Problem Noted Date Diagnosed Date Currently 06/15/2020 05/18/2020 Overview (05/18/2020): EFW 36 wks 88%ile Resolved Problems Problem Noted Date Diagnosed Date Resolved Date Decreased movements in third trimester 1 05/18/2020 Immunizations Immunization Administration Dates Next Due MMR 06/19/2020 Family History Medical History Relation Name Comments Diabetes Other FAMILY HX Relation Name Status Comments Other FAMILY HX Social History Tobacco Use Types Packs/Day Years [...] and heating? Not hard at all 11/18/2019 [facility] [place] of Occupat ional Health - Occupational Stress [...] things needed for daily living? No 11/18/2019 [place] Depression Scale Answer Date Recorded [place] Depression Scale Total 5 06/18/2020 The thought of harming myself has occurred to me . Never 06/18/2020 Abuse Screen Answer Date Recorded Unsafe at Home or Work/School Not on file Feels Threatened by Someone? Not on file 10/2022 Does Anyone Keep You from Co ntacting Others or Doint Things Outside the Home? Not on file 11/19/2022 Physical Sign of Abuse Present Not on file 1 Housing Stability Answer Date Recorded Current Living Arrangements Not on file 10/2022 Potentially Unsafe Housing Conditions Not on mickey e 11/19/2022 Family and Community Support Answer Richy e Recorded Help with Day-to-Day Activities Not on file 11/19/2022 Lonely or Isolated Not on file 11/19/2022 Employment Answer Date Recorded Do you want help finding or keeping work or a rangel b? Not on file 11/19/2022 Disabilities Answer Date Recorded Concentrating, Remembering, or Making Decisions Difficulty Not on file 11/19/2022 Doing Errands Independently Difficulty Not on fi le 11/19/2022 Education Answer Date Recorded Help with school or training? 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 Not on file Not on file Not on file Last Filed Vital Signs Vital Sign Reading Time Taken Comments Blood Pressure 112/72 08/22/2020 1:20 PM EDT Pulse 92 06/19/2020 7:00 AM EDT Temperature 36.4 C (97.5 F) 07/06/2020 2:49 PM EDT Respiratory Rate 16 06/19/2020 7:00 AM EDT Oxygen Saturation 99% 06/16/2020 5:19 PM EDT Inhaled Oxygen Concentration - - Weight 116 kg (254 lb 12.8 oz) 08/22/2020 1:20 P M EDT Height 172.7 cm (5' 7.99 ) 08/22/2020 1:20 PM ED T Body Mass Index 38.75 08/22/2020 1:20 PM EDT Plan of Treatment Health Maintenance Due Date Last Done Comments Annual Gynecologic Pelvic an d Breast Exam 2000 HPV VACCINES (1 - 3-dose series) 09/08/2015 ANNUAL PHYSICAL 11/05/2019 TDAP/TD VACCINES (2 - Td or Tdap) 09/26/2022 013 INFLUENZA VACCINE 09/11/2024 CHLAMYDIA SCREENING Discontinued 11/18/2019 HEPATITIS C SCREENING Completed 11/18/2019 MENINGOCOCCAL B VACCINE Aged Out No l onger eligible based on patient's age to complete this topic Pneumococcal Vaccine 0-49 Aged Out No longer eligible based on patient's age to complete this topic Procedures Procedure Name Priority Date/Time Associated Diagnosis Comments CHLAMYDIA TRACHOMATIS, NEISSERIA GONORRHOEAE, PCR W/ CONFIRMATION Routine 11/18/2019 4:15 PM EDT 10 weeks gestation of HEPATITIS C ANTIBODY Routine 11/18/2019 4:15 PM EDT 10 weeks gestation of from Last 3 Months or Most Recently Relevant to Health Maintenance Results * Hepatitis C Antibody (11/18/2019 4:15 PM EDT) Hepatitis C Ab Non-Reacti ve Non-Reacti ve 11/18/2019 8:17 PM EDT [facility] Blood Venipuncture / Unknown 11/18/2019 4:15 PM EDT 11/18/2019 4:15 PM EDT Narrative [facility] - 11/18/2019 8:17 PM EDT Results may be falsely decreased if patient taking Biotin. Becca Gonsales MD LAB BLOOD ORDERABLES Final Resul t [facility]
[address] [place] [address], * Chlamydia trachomatis, Neisseria gonorrhoeae, PCR w/ confirmation - Urine, Urine, Clean Catch (11/18/2019 4:15 PM EDT) Pathologist [facility] [place] Chlamydia trachomatis, [place] Negative Negative 11/21/2019 10:06 PM EDT [facility] Neisseria gonorrhoeae, [place] Negative Negative 11/21/2019 10:06 PM EDT [facility] Urine Urine specimen collection, clean catch / Unknown Collection / Unknown 11/18/2019 4:15 PM EDT 11/18/2019 4:15 PM EDT [facility] - 11/21/2019 10:06 PM EDT Performed at: [facility] [id number] Senior Test Analyst: Matilde Avalos MD, Phone: [phone] Becca Gonsales MD MICROBIOLOGY - GENERAL ORDERABLE S Final Result [facility] [address] [place] [address], from Last 3 Months or Most Recently Relevant to Health Maintenance Insurance [facility] PPO Advance Directives * CPR (Attempt to Resuscitate) (Latest Code Status on File) Date Activated Date Inactivated Comments 06/16/2020 5:34 PM 06/19/2020 3:04 PM Question Answer Comments Code Status (Patient has no pulse and is not breathing): CPR (Attempt to Resuscitate) Medical Interventions (Patie nt has pulse or is breathing): Full * CPR (Attempt to Resuscitate) Date Activated Date Inactivated Comments 06/15/2020 6:41 PM 06/16/2020 5:34 PM Question Answer Comments Code Status (Patient has no pulse and is not breathing): CPR (Attempt to Resuscitate) Medical Interventions (Patie nt has pulse or is breathing): Full Care Teams Automotive Window Tinter Relationship Specialty Start Date End Date Thomas Bunn MD [address] [place] [address] PCP - General Internal Medicine 08/19/23
--- NOTE | 2024-11-11 09:26 | ED_ITS ---
Discharge Plan Disposition Patient Disposition: Home, Self-Care Condition: Good Prescriptions Prescriptions: New amoxicillin-pot clavulanate 875-125 mg tablet 1 tab PO Q12H 7 Days Qty: 14 0RF No Action penicillin V potassium 500 mg tablet 500 mg PO BID 10 Days Qty: 20 0RF Referrals Follow up/Referrals: Provider,Referral, [Primary Care Provider, Medical] - See instructions Activity Restrictions/Add. Instructions Additional Instructions/Restrictions: Please take Augmentin twice per day for the next 7 days to treat your ear infection. You can take over the counter cough and cold medication for further symptomatic control. If you have any new or worsening symptoms please return to the ER for further evaluation. Clinical Impressions Clinical Impression: Acute left otitis media Print Language Print Language: Korean Discharge ED Provider: Earl Varma Adult HPI General Chief complaint: Upper Respiratory Infection Stated complaint: congestion, cough, pink pghlem, L ear plugged Time Seen by Provider: 11/11/24 09:16 History of Present Illness HPI narrative: This is a 24-year-old female patient, with no past medical history no daily medications, who is presenting to the emergency department today for evaluation of upper respiratory symptoms. Patient states that she has had rhinorrhea and congestion for the last several days as well as a cough over the last 24 hours. When symptoms began she was having a sore throat and she went to an urgent care treatment center and was diagnosed with strep via a pharyngeal swab and was started on penicillin. She states that she has taken this for the last couple of days and her sore throat has improved but she has now developed a severe lef t-sided earache and feels as if she has had decreased hearing acuity. She has not noticed any swelling along the mastoid. No neck stiffness. No difficulty tolerating secretions. In addition to this she has a cough but is not producing phlegm and is not experiencing fevers. Related Data Previous Rx's ?Medication ?Instructions ?Recorded penicillin V potassium 500 mg 500 mg PO BID 10 days #2 0 tabs 11/08/24 tablet amoxicillin 875 mg-potassium 1 tab PO Q12H 7 days #14 tabs 11/11/24 clavulanate 125 mg tablet Allergies Allergy/AdvReac Type Severity Reaction Status Date / Time No Known Allergies Allergy Verified 11/08/24 16:15 [facility] Disclaimer: The information contained in this section may have been updated after the patient was seen, as this information can be updated by other users. Medical History (Updated 11/11/24 @ 09:34 by Earl Varma DO) Strep throat No significant medical problems Surgical History Hx of section Hx of adenoidectomy Social History Smoking Status: Current every day smoker alcohol intake: never current occupational status: employed Travel in the last 8 weeks?: None ROS Obtained: Yes Systems reviewed as appropriate & no additional complaints except as documented Physical Exam General General appearance: other (See MDM) Respiratory Respiratory exam: Present other (See MDM) Cardiovascular Cardiovascular exam: Present other (See MDM) Neurological Exam Neurological exam: Present other (See MDM) Medical Decision Making Medical Records Medical records reviewed: Yes I reviewed the patient's medical records. Screening: Per USPSTF and CDC recommendations, given the prevalence of disease in our reg ion, it is our hospital?s policy to screen for HIV and viral Hepatitis for all patients aged 18 and over and those with ongoing risk factors. Joce Inquiry Pt receiving controlled substance: No Joce was queried for this patient: No Medical Decision Narrative: In summary, this is a 24-year-old female patient who is presenting to the emergency department today for evaluation of left-sided ear pain in the setting of a recent streptococcal pharyngitis infection as well as rhinorrhea and congestion for the last several days. She has been taking penicillin that has relieved her sore throat but has not developed left-sided ear pain with decreased hearing acuity. This patient has no comorbidities that would complicate their medical management or care. On initial evaluation of the patient they were resting comfortably in no acute distress and nontoxic in appearance. They are hemodynamically stable, saturating well room air, and are neurologically intact. On physical examination the patient her heart and lungs are clear to auscultation bilaterally. No stridor, wheezes, rales, rhonchi, or crackles. Abdomen soft nontender. She has no extremity edema. On oropharyngeal exam her tonsils are symmetric in appearance without exudates or hypertrophy of the tonsillar pillars. Uvula is midline. On otoscopic examination the patient has a normal-appearing right TM. Her left TM is bulging and erythematous with a purulent rim along the inferior margin of the TM. She has no tenderness of the mastoid and no erythema of the mastoid. No asymmetric protrusion of the ears. Differential diagnosis includes acute otitis media, viral syndrome, among oth ers. The patient does have a cough noted on examination as well, but she is not experiencing any abnormal respiratory findings. Additionally, the duration of her symptoms, lack of production of phlegm, lack of shortness of breath, and lack of fever suggest against pneumonia. Based on clinical exam above mastoiditis is very unlikely Given that the patient has been on penicillin and has developed a left-sided otitis media, we will extend her antibiotic spectrum out to include Augmentin. Return precautions have been given to the patient in the event that she has any new or worsening symptoms. I have also instructed her to return if she starts having production of phlegm, shortness of breath, or fevers. At this time all questions have been answered and all parties are agreeable with the decision to discharge home. Critical Care Critical Care Time Critical Care Time: No
[2024-11-11 09:36] VITALS: BP 116/57; PULSE 100; RESP 16; TEMP 37; O2SAT 97
== END 2024-11-11 09:40 | disposition home or self-care (01) ==
PROVIDERS: Emergency Provider Student in an Organized Health Care Education/Training Program
DX: H66.92 Otitis media, unspecified, left ear (principal)
CPT/HCPCS: 99282; 99283

== ENCOUNTER 2024-12-19 16:49 | Emergency (ER) | payer BC, SELFPAY ==
[2024-12-19 17:46] VITALS: BP 108/60; PULSE 90; RESP 16; TEMP 36.8; O2SAT 99; BMI 42.3
--- NOTE | 2024-12-19 17:50 | XR_ITS ---
PROCEDURE INFORMATION: Exam: XR Left Ankle Exam date and time: 12/19/2024 7:00 PM Age: 24 years old Clinical indication: Other: Tripped 2wks prior TECHNIQUE: Imaging protocol: Radiologic exam of the left ankle. Views: 3 or more views. COMPARISON: CR XR FOOT LT MIN 3V 12/19/2024 7:00 PM FINDINGS: Bones/joints: Anatomic alignment is maintained. No acute fracture. No osteochondral defect. Tiny posterior calcaneal enthesophyte. Soft tissues: Normal. IMPRESSION: No acute/subacute osseous abnormality.
--- NOTE | 2024-12-19 17:50 | XR_ITS ---
PROCEDURE INFORMATION: Exam: XR Left Foot Exam date and time: 12/19/2024 7:00 PM Age: 24 years old Clinical indication: Other: Tripped 2wks prior TECHNIQUE: Imaging protocol: Radiologic exam of the left foot. Views: 3 or more views. COMPARISON: CR XR ANKLE LT MIN 3V 12/19/2024 7:00 PM FINDINGS: Bones/joints: Anatomic alignment is maintained. No acute fracture. Tiny posterior calcaneal enthesophyte. Soft tissues: Normal. IMPRESSION: No acute/subacute osseous abnormality.
--- OUTSIDE RECORDS SUMMARY | 2024-12-19 18:22 | XMS_ITS | Clinical Summary ---
[facility] [address] [place] [address] Care Team Providers Care Pharmaceutical Officer Name Role Phone Thomas Bunn MD Primary Care Provider [phone] Allergies No known active allergies Medications No [...] and heating? Not hard at all 11/18/2019 [facility] [place] of Occupat ional Health - Occupational Stress [...] things needed for daily living? No 11/18/2019 Pacolet Depression Scale Answer Date Recorded [place] Depression Scale Total 5 06/18/2020 The thought [...] ve Non-Reacti ve 11/18/2019 8:17 PM EDT [facility] Blood Venipuncture / Unknown 11/18/2019 4:15 PM EDT 11/18/2019 4:15 PM EDT Narrative [facility] - 11/18/2019 8:17 PM EDT Results may be falsely decreased if patient taking Biotin. Becca Gonsales MD LAB BLOOD ORDERABLES Final Resul t [facility]
[address] [place] [address], * Chlamydia trachomatis, Neisseria gonorrhoeae, PCR w/ confirmation - Urine, Urine, Clean Catch (11/18/2019 4:15 PM EDT) Pathologist [facility] Chlamydia trachomatis, YUDELKA Negative Negative 11/21/2019 10:06 PM EDT [facility] Neisseria gonorrhoeae, [place]KA Negative Negative 11/21/2019 10:06 PM EDT [facility] Urine Urine specimen collection, clean catch / Unknown Collection / Unknown 11/18/2019 4:15 PM EDT 11/18/2019 4:[address] [facility] - 11/21/2019 10:06 PM EDT Performed at: [facility] [id number] Healthcare Management Consultant: Matilde Avalos MD, Phone: [phone] Becca Gonsales MD MICROBIOLOGY - GENERAL ORDERABLE S Final Result [facility] [address] [place] [address], from Last 3 Months or Most Recently Relevant to Health Maintenance Insurance [employer] [facility] PPO Advance Directives * CPR (Attempt to [...] pulse or is breathing): Full Care Teams Pharmaceutical Officer Relationship Specialty Start Date End Date Thomas Bunn MD [address] [place] [address] PCP - General Internal Medicine 08/19/23
--- OUTSIDE RECORDS SUMMARY | 2024-12-19 18:22 | XMS_ITS | Encounter Summary ---
[facility] [address] [place] [address] Care Team Providers Care Grocery Team Member Name Role Phone Thomas Bunn MD Primary Care Provider [phone] Encounter Details Date Type Department Care Team (Late st Contact Info) Description 04/06/2020 E-Visit [facility] O[facility] [address] [place] [address] Becca Gonsales MD [address] [facility] [address] [place] [address] Urinary Problems Social History Tobacco Use Types [...] and heating? Not hard at all 11/18/2019 [facility] of Occupat ional Health - Occupational Stress [...] documented as of this encounter Care Teams Grocery Team Member Relationship Specialty Start Date End Date Thomas Bunn MD [address] [place] [address] PCP - General Internal Medicine 08/19/23 documented as of this encounter
[2024-12-19 18:39] VITALS: BP 145/69; PULSE 93; O2SAT 99
--- NOTE | 2024-12-19 19:02 | ED_ITS ---
<Statement entered by Rachell Treviño MD - 12/19/24 22:56> I was consulted by the KIYA, and we discussed the complexity of the problems being addressed. I approved the treatment and management plan for this patient's care in the emergency department, thus performing a substantive portion of the medical decision making. Rachell Treviño MD, MAKENZIE, FACEP Discharge Plan Disposition Patient Disposition: Home, Self-Care Prescriptions Prescriptions: No Action penicillin V potassium 500 mg tablet 500 mg PO BID 10 Days Qty: 20 0RF amoxicillin-pot clavulanate 875-125 mg tablet 1 tab PO Q12H 7 Days Qty: 14 0RF Referrals Follow up/Referrals: Carson Rascon DO [Staff Physician, Orthopedics] - See instructions Provider,Referral, [Primary Care Provider, Medical] - See instructions Activity Restrictions/Add. Instructions Additional Instructions/Restrictions: Today you were evaluated in the emergency department for left foot pain, please wear the walking boot until evaluated further by Dr. Rascon. Please call his office to make a follow-up appointment. Please continue to take acetaminophen and ibuprofen [id number] for symptomatic relief. Return to the ED for worsening of condition. Clinical Impressions Clinical Impression: Acute foot pain Instructions Patient Instructions: DI for Foot Pain Print Language Print Language: Palauan Discharge ED Provider: Rachell Treviño General Adult HPI General Chief complaint: Extremity Injury, Lower Stated complaint: hurt left ankle , two weeks ago Time Seen by Provider: 12/19/24 18:55 Mode of Arrival: Ambulatory Source of Information: Patient Description of Symptoms (Recalled from ER Triage Doc. by RN): pt states about two weeks ago she tripped in a hole in her yard. pt states she has had pain in her L ankle/foot ever since. She has not been seen and would like XR's to rull out a fracture. pt states her pain is constant 5/10 and burning in nature. pt has not taken anything for pain today. pt is able to bare weight but it becomes more painful. History of Present Illness HPI narrative: patient is a 24-year-old female who presents to the ED for complaints of left foot pain x 2 weeks. Patient states that she twisted her left ankle and foot in a hole approximately 2 weeks ago, possibly greater than 2 weeks. Related Data Previous Rx's ?Medication ?Instructions ?Recorded penicillin V potassium 500 mg 500 mg PO BID 10 days #2 0 tabs 11/08/24 tablet amoxicillin 875 mg-potassium 1 tab PO Q12H 7 days #14 tabs 11/11/24 clavulanate 125 mg tablet Allergies Allergy/AdvReac Type Severity Reaction Status Date / Time No Known Allergies Allergy Verified 11/08/24 16:15 [facility] Disclaimer: The information contained in this section may have been updated after the patient was seen, as this information can be updated by other users. Medical History (Updated 12/19/24 @ 19:38 by Huyen Mckenzie APRN) Strep throat No significant medical problems Surgical History Hx of section Hx of adenoidectomy Social History Smoking Status: Current every day smoker alcohol intake: never current occupational status: employed Travel in the last 8 weeks?: None Have you lived/traveled outside US in past 30 days?: No Contact w/someone who lives/traveled outside US past 30 days?: No Exposure to someone with infectious disease in past 14 days?: No Do you have a fever (greater than 100.4 F or 38 C)?: No Have you tested positive for COVID-19?: No Exposed to someone with COVID-19 in past 14 days?: No Do you have a sore throat?: No Do you have a cough?: No Do you have any weakness?: No Do you have any diarrhea?: No Are you experiencing any unusual bleeding?: No Do you have any muscle aches/pain?: No Do you have any abdominal pain?: No Are you experiencing loss of taste or smell?: No ROS Obtained: Yes Systems reviewed as appropriate & no additional complaints except as documented Physical Exam General General appearance: alert Eye Eye exam: Present PERRL Neck Neck exam: Present full ROM Respiratory Respiratory exam: Absent respiratory distress Cardiovascular Cardiovascular exam: Present regular rate Extremities Exam Extremities exam: Present other (left foot tenderness anterior aspect, nv status intact ) Neurological Exam Neurological exam: Present alert, oriented X3 and normal gait; Absent motor sensory deficit Medical Decision Making Medical Records Screening: Per USPSTF and CDC recommendations, given the prevalence of disease in our region, it is our hospital?s policy to screen for HIV and viral Hepatitis for all patients aged 18 and over and those with ongoing risk factors. Joce Inquiry Pt receiving controlled substance: No Vital Signs: 12/19/24 17:46 12/19/24 18:39 Temperature 98.2 F Temperature Source Oral Pulse Rate 93 H Pulse Rate [Left] 90 Respiratory Rate 16 Blood Pressure 145/69 H Blood Pressure [Right Arm] 108/60 L Blood Pressure Mean [Right Arm] 76 Blood Pressure Source [Right Arm] Automatic Cuff Blood Pressure Position [Right Arm] Sitting 02 Sat by Pulse Oximetry 99 99 Oxygen Delivery Method Room Air Room Air Orders (Tests/Meds): ORDERS Category Date Time Status Foot XR left minimum 3 views [XR foot LT min 3V] Stat Exams 12/19/24 17:50 Taken XR ankle LT min 3V Stat Exams 12/19/24 17:50 Taken Medical Decision Narrative: In summary, patient is a 24-year-old female who presents to the ED for complaints of left foot pain x 2 weeks. Patient states that she twisted her left ankle and foot in a hole approximately 2 weeks ago, possibly greater than 2 weeks. She states that she intermittently is having pain along the anterior aspect of her left foot, pain when she crosses her legs and places her other foot on top of the left foot. She has not been evaluated for this yet. She has not taken anything for symptomatic relief prior to arrival. Differential diagnoses include fracture, sprain, strain, ligamentous injury among others. Upon initial evaluation she is alert, oriented and cooperative. She has mild left foot, lateral tenderness. Full ROM, neurovascular status intact Imaging of the left foot and ankle obtained, no acute findings on my informal review. Discussed that I feel this is a ligamentous injury. Discussed with patient that we can provide her with a walking boot that she can wear until she is evaluated further by Dr. Rascon. I offered her crutches as well. Discussed that she will need to continue to take Tylenol and Motrin [id number] for symptomatic relief. We discussed return precautions to the ED and patient verbalized understanding. Critical Care Critical Care Time Critical Care Time: No
[2024-12-19 19:42] VITALS: BP 127/78; PULSE 61; RESP 17; TEMP 37.1; O2SAT 95
== END 2024-12-19 19:46 | disposition home or self-care (01) ==
PROVIDERS: Emergency Provider Student in an Organized Health Care Education/Training Program
DX: M25.572 Pain in left ankle and joints of left foot (principal); W17.2XXA Fall into hole, initial encounter
CPT/HCPCS: 73610; 73630; 99283

== ENCOUNTER 2024-12-31 15:05 | Outpatient (CLI) | payer BC, SELFPAY ==
--- NOTE | 2024-12-31 15:29 | ECG_ITS ---
APPROVED REPORT Exam: Resting ECG HR:81 bpm ECG Measurements Heart Rate 81 AXES RI 145 P 51 QRSd 90 QRS 79 QT 359 T 47 QTc 396 Conclusion SINUS RHYTHM POSSIBLE RIGHT VENTRICULAR CONDUCTION DELAY [RSR (QR) IN V1/V2] BORDERLINE ECG UNCONFIRMED REPORT Electronically signed by : Sergio Borden MD 01/01/2025 08:49:34
[2024-12-31 16:55] LABS: Microscopic, Urine URINE MICROSCOPIC (MICROSCOPIC)
[2024-12-31 17:12] LABS: Hematocrit 40.0 % (37.0-47.0); Hemoglobin 12.7 g/dL (12.2-16.2); Immature Granulocytes % 0.2 %; Mean Corpuscular HGB Conc 31.8 g/dL (31.8-35.4); Mean Corpuscular Hemoglobin 26.6 pg (27.0-31.2); Mean Corpuscular Volume 83.7 fl (81-99); Nucleated Red Blood Cells % 0 %; Platelet Count 514 K/mm3 (142-424); Red Blood Count 4.78 M/mm3 (4.20-5.40); Red Cell Distribution Width-SD 40.9 fL; White Blood Count 8.1 K/mm3 (4.8-10.8)
[2024-12-31 18:04] LABS: Albumin Level 4.5 g/dl (3.5-5.0); Chloride 103 mmol/L (98-107); Sodium 141 mmol/L (136-145)
[2024-12-31 18:05] LABS: Potassium 4.7 mmoL/L (3.5-5.1)
[2024-12-31 18:07] LABS: Alanine Aminotransferase 34 U/L (12-78); Albumin/Globulin Ratio 1.5 (1.1-1.8); Anion Gap 20.7 mEq/L (5-15); Aspartate Amino Transferase 31 U/L (14-36); Blood Urea Nitrogen 9 mg/dl (7-17); Carbon Dioxide 22 mmol/L (22.0-30.0); Creatinine,Serum 0.60 mg/dl (0.52-1.04); Estimated Glomerular Filt Rate 123 ml/min (>60); GFR (African American) 149 ML/MIN (>60); Globulin 3.0 g/dL (1.3-3.2); Total Protein,Serum 7.5 g/dl (6.3-8.2)
[2024-12-31 18:08] LABS: Alkaline Phosphatase 65 U/L (38-126); Bilirubin,Total 0.3 mg/dl (0.2-1.3); Calcium 9.2 mg/dl (8.4-10.2); Cholesterol 181 mg/dl (140-200); Glucose 71 mg/dl (74-100); HDL Cholesterol 33 mg/dl (40-60); Iron 85 ug/dL (37-170); Triglycerides 231 mg/dl (30-150)
[2024-12-31 18:16] LABS: Bilirubin,Urine Negative (Negative); Color,Urine YELLOW (Yellow); Glucose,Urine (UA) Negative (Negative); Ketones,Urine Negative (Negative); Leukocyte Esterase,Urine Negative (Negative); PH,Urine 6.0 (5.0-8.5); Protein,Urine Negative (Negative); Specific Gravity, Urine 1.020 (1.005-1.030); Urobilinogen,Urine 0.2 EU/dl (0.2)
[2024-12-31 18:24] LABS: 25-OH Vitamin D, Total 21.7 ng/mL (30-100); Total Iron Binding Capacity 378 ug/dL (265-497)
[2024-12-31 18:25] LABS: Free T4 (Free Thyroxine) 1.11 ng/dl (0.78-2.19)
[2024-12-31 18:42] LABS: Thyroid Stimulating Hormone 1.10 uIU/mL (0.465-4.68)
[2024-12-31 18:45] LABS: Ferritin 30.9 ng/ml (6.24-137)
[2024-12-31 18:55] LABS: Hepatitis C Ab Qual. W/ RFX NEGATIVE (Negative)
[2024-12-31 19:01] LABS: Hemoglobin A1C 5.4 % (4.0-6.0)
[2024-12-31 19:14] LABS: Bacteria,Urine 2+ /lpf; WBC,Urine Occasional #/hpf (0-3)
[2025-01-01 04:54] LABS: Vitamin B12 297 pg/mL (239-931)
[2025-01-02 04:08] LABS: Hepatitis B Surface Antigen Negative (Negative)
[2025-01-02 14:04] LABS: Deamidated Gliadin Abs, IgA 2 units (0-19); Deamidated Gliadin Abs, IgG 2 units (0-19)
[2025-01-06 15:49] LABS: Saccharomyces cerevisiae, IgA <20.0 Units (0.0-24.9); Saccharomyces cerevisiae, IgG <20.0 Units (0.0-24.9)
== END 2024-12-31 23:59 | disposition home or self-care (01) ==
LOC: RT 15:06
PROVIDERS: PCP Nurse Practitioner Family; Visit Provider Nurse Practitioner Family
DX: R00.2 Palpitations (principal); G43.909 Migraine, unspecified, not intractable, without status migrainosus; Z13.220 Encounter for screening for lipoid disorders; Z13.21 Encounter for screening for nutritional disorder; Z13.29 Encounter for screening for other suspected endocrine disorder; R10.9 Unspecified abdominal pain; R14.0 Abdominal distension (gaseous); Z11.59 Encounter for screening for other viral diseases; Z11.4 Encounter for screening for human immunodeficiency virus [HIV]; Z12.4 Encounter for screening for malignant neoplasm of cervix; Z76.89 Persons encountering health services in other specified circumstances; Z68.41 Body mass index [BMI] 40.0-44.9, adult
CPT/HCPCS: 80053; 80061; 81001; 82306; 82607; 82728; 83036; 83540; 83550; 84439; 84443; 85025; 86225; 86231; 86235; 86258; 86364; 86671; 86803; 87086; 87340; 87389; 93005; 93270

== ENCOUNTER 2025-01-15 08:53 | Outpatient (CLI) | payer BC, SELFPAY ==
--- NOTE | 2025-01-15 09:15 | CA_ITS ---
APPROVED REPORT EXAM: Comprehensive 2D, Doppler, and color-flow Echocardiogram Licensed Psychiatric Technician: Desiree Fischer, RT(R) Ht: 5 ft 7 in Wt: 287lbs BSA: 2.36 BP: 110/78 mmHg Indications: tachycardia, palpitations, SOB, dizziness, abn EKG Echo Enhancing Agent Indication: Rule out Shunt Agent(s) / Amount(s) Used: Agitated Saline 20 cc 2D Dimensions LVEF (Elder's) 62.90 % F: 54 - 74 LV Volume 122.90 mL F: 46 - 106 LV Volume Index 52.1 mL/m2 F: 29 - 61 LA Volume 25.90 mL LA Volume Index 10.97 mL/m2 (M/F) 16-34 EF AP4 59.30 % EF AP2 66.0 % EF BP 62.9 % GL Strain -22.0 % M-Mode Dimensions RVDd 3.15 cm (0.9-2.6) LA Diam 2.10 cm (1.9-4.0) LVDd 3.83 cm (3.5-5.7) LVDs 2.81 cm (3.5-5.7) IVSd 0.68 cm (0.6-1.1) PWd 0.68 cm (0.6-1.1) EF (Teich) 52.80% FS 26.60% EDV (Teich) 63.10 mL ESV (Teich) 29.80 mL LV Diastology E Decel Time 150 (160-240 msec) E/A Ratio 1.4 Mitral Valve MV E Max Kali. 108.0 (40-130 cm/s) MV A Velocity 79.0 (40-130 cm/s) E/A Ratio 1.36 MV PHT 44.0 ms Left Ventricle The left ventricle is normal size. Left ventricular systolic function is normal. The left ventricular ejection fraction is within the normal range. There is normal left ventricular wall thickness. There is normal LV segmental wall motion. The left ventricular diastolic function is normal. LVEF is 55% Right Ventricle The right ventricle is normal size. The right ventricular systolic function is normal. Atria The left atrium size is normal. The right atrium size is normal. There is no color Doppler evidence of interatrial shunt. Agitated saline demonstrates the presence of interatrial shunt. Aortic Valve The aortic valve opens well. There is no hemodynamically significant aortic valvular stenosis. No aortic regurgitation is present. Mitral Valve The mitral valve is normal in structure. No evidence of mitral valve stenosis. Trace mitral regurgitation is present. Tricuspid Valve The tricuspid valve leaflets are thin and pliable. Trace tricuspid regurgitation. There is insufficient TR jet to estimate RVSP. Pulmonic Valve The pulmonary valve is grossly normal in structure. Trace pulmonic valve regurgitation is present. Great Vessels The aortic root is normal in size. The ascending aorta is mildly dilated, measuring 3.8 cm in diameter. IVC is normal in size and collapses >50% with inspiration. Pericardium There is no pericardial effusion. Other Information Study Quality: Fair Conclusion Normal biventricular size and systolic function. No significant valvular stenosis or regurgitation. Agitated saline demonstrates the presence of interatrial shunt. The ascending aorta is mildly dilated, measuring 3.8 cm in diameter. Correlation with new or recent CTA chest is suggested. Electronically signed by : Brunilda Milton MD 01/19/2025 14:31:52
== END 2025-01-15 23:59 | disposition home or self-care (01) ==
LOC: RT 08:53
PROVIDERS: PCP Nurse Practitioner Family; Visit Provider Nurse Practitioner
DX: Q21.10 Atrial septal defect, unspecified (principal); I77.810 Thoracic aortic ectasia; R94.31 Abnormal electrocardiogram [ECG] [EKG]; R42 Dizziness and giddiness
CPT/HCPCS: 93306